=== PATIENT | male | born 1950 | race Caucasian/White ===

== ENCOUNTER 2017-10-28 10:34 | Observation (INO) ==
[2017-10-28] MEDS ORDERED: Chlorhexidine Gluconate 2% 1 Pack (2 Cloths) TOPICAL SCH (11:30)
[2017-10-28] MEDS ORDERED: Metoprolol Tartrate 25 MG Tablet PO SCH (11:30)
[2017-10-28] MEDS ORDERED: Neostigmine Inj 5 MG/5 ML Syringe IV.PUSH ONE (12:00)
[2017-10-28] MEDS ORDERED: Glycopyrrolate Inj 1 MG/5 ML Syringe IV.PUSH ONE (12:00)
[2017-10-28] MEDS ORDERED: Lidocaine PF 1% Inj 5 ML Syringe INFILTRATN ONE (12:00)
[2017-10-28] MEDS ORDERED: Phenylephrine/NS 1000 MCG/10ML Syringe IV.PUSH ONE (12:00)
[2017-10-28] MEDS ORDERED: Sodium Chlor 0.9% Inj 500 ML IV.SIG SCH (12:00)
[2017-10-28] MEDS ORDERED: Gelatin Size 100 Topical Foam ONE (16:14)
[2017-10-28] MEDS: Thrombin Topical Soln 5,000 UNIT Vial TOPICAL ONE (17:25)
[2017-10-28] MEDS: Lidocaine 1%/Epinephrine 1:100,000 Inj 30 ML Vial ONE (17:25)
[2017-10-28] MEDS ORDERED: fentaNYL Citrate Inj 100 MCG/2 ML Ampul ONE (19:41)
[2017-10-28] MEDS ORDERED: Bupivacaine Liposomal PF 1.3% Inj 20 ML Vial ONE (20:13)
[2017-10-28] MEDS ORDERED: ceFAZolin 2 GM Premix Inj 2 GM/50 ML PIGGYBACK IV.SIG ONE (20:45)
--- NOTE | 2017-10-28 21:11 | XR ---
EXAM DATE: 10/28/2017 8:57 PM EDT AGE/SEX: 67 years / Male INDICATIONS: Level location L5-S1Low back pain CLINICAL DATA: This is the patient's initial encounter. Patient reports that signs and symptoms have been present for 1 day and indicates a pain score of Nonresponsive. MEDICAL/SURGICAL HISTORY: Non-responsive. Non-responsive. COMPARISON: No prior exams available for comparison. FINDINGS: Single lateral image obtained in the operating room during a procedure demonstrates instruments overl carson the posterior elements and posterior disc space at L5-S1. CONCLUSION: Instruments overlie the posterior elements and posterior disc space at L5-S1. Electronically signed by: Scott Weaver MD 10/28/2017 9:09 PM EDT
[2017-10-28] MEDS ORDERED: Acetaminophen 325 MG Tablet PO PRN (21:44)
--- NOTE | 2017-10-28 22:04 | P.OP ---
Date of procedure: 10/31/17 Procedure: Left L5-S1 foraminotomy, lysis of adhesions Anesthesia: GETA Surgeon: Bronson Ortiz MD Parent Partner: Robert Knox Estimated blood loss (mL): 100 Operation and Findings: Findings: Extensive adhesions of the L5 nerve root at the left L5-S1 extraforaminal location. Procedure in detail: The patient was brought in the operating room general endotracheal anesthesia induced without difficulty. Lines were established per anesthesia LIMA hose and sequential compression devices were placed Freeman catheter placed Patient placed in prone position on the [facility] table was side bolsters and all extremities appropriately padded. The lumbar region was prepped and draped in sterile fashion Appropriate timeout procedure performed with all personnel present and in agreement The incision was made approximately 5 cm lateral to the midline at the left L5- S1 level and carried sharply down to the fascia which was incised with the Metzenbaum scissors. The normal intramuscular plane was dissected down to the left L5-S1 facet. The Lugo elevator was used for elevation of the muscle and fascia away from the left L5 transverse process and sacral ala. The deep self-retaining retractor was placed. The L5-S1 level was verified with intraoperative C-arm imaging. The microscope was moved into place and used for the remainder of the procedure except for the closure. The intertransverse process ligament was opened with a thin ligament dissector and the 15 blade knife. The adipose tissue and ligamentous structures overlying the left L5-S1 foramen and exiting L5 nerve root were dissected with the microdissectors and microscissors. The inferior aspect of the superior left S1 facet was removed with the Kerrison rongeurs to perform a wide foraminotomy. Kambins triangle was entered and the left L5-S1 annulus exposed. The exiting left L5 nerve root was then delineated and there was noted to be extensive scar tissue and adhesion between the exiting nerve root and the annulus as well as the surrounding ligamentous and vascular structures. Extensive dissection with the microdissectors was required to free up the left L5 nerve root. Once free, it was gently retracted revealing the underlying annulus at the L5- S1 extraforaminal location. There was some bulging of the annulus but no definite annular tear or focal disc herniation. The nerve root appeared somewhat edematous. Due to the lack of definite focal disc herniation, a discectomy was not performed. It was felt that the patient likely had chronic radiculitis related to adhesions along the left L5 extraforaminal nerve root, possibly a remote petechial disc herniation. The region was well irrigated with antibiotic irrigation Bleeding was carefully controlled with the bipolar forceps Exparel was injected into the musculature along the exposure operative site. The closure was performed with 0 Vicryl for the deep and superficial fascia, 3- 0 Vicryl subcutaneous closure and 4-0 Vicryl running subcuticular closure A dressing of sterile benzoin Steri-Strips and Primapore was placed The patient was taken to recovery room in stable condition All counts were correct in the case No specimen was sent to pathology
[2017-10-28] MEDS ORDERED: *morphine SULFATE 4 MG/ML PERIprocedure ONLY ONE (22:58)
[2017-10-29] MEDS: Lidocaine 1%/Epinephrine 1:100,000 Inj 30 ML Vial ONE (01:05)
[2017-10-29] MEDS: Thrombin Topical Soln 5,000 UNIT Vial TOPICAL ONE (01:05)
[2017-10-29] MEDS ORDERED: Senna/Docusate Sodium 8.6/50 MG Tablet PO SCH (09:00)
--- NOTE | 2017-10-29 15:49 | P.PNNS ---
Subjective Interval history: 10/28: The patient presented to [facility] to have a left L5-S1 foraminotomy with lysis of adhesions. Post-operatively he was admitted to a regular med/surg floor. 10/29: This afternoon the patient is up and leaning on the counter in the room. He has the walker in front of him. He says he is doing good. He does have some mild pain to the surgical incision but denies any other back pain. He denies any pain, numbness or tingling to the lower extremities. He has no chest pain, palpitations, irregular heartbeat, shortness of breath, nausea or vomiting. He states he has had a bowel movement and is voiding without difficulty although it does burn secondary to the catheter. He does say he has numbness to the second and third right hand digits since the IV catheter was placed and that it is painful there. He has no sensorimotor deficits upon evaluation. Physical Therapy evaluated the patient and felt that he was able to be discharged home using a front wheeled walker and that no further therapy was needed at home. <Blake Guthrie E - Last Filed: 10/29/17 15:55> Physical Exam Vital signs: Vital Signs 10/28/17 21:25 10/28/17 21:29 10/28/17 21:45 Temperature 98.4 F Pulse Rate 79 79 69 Respiratory Rate 18 18 18 Blood Pressure 143/66 H 138/64 144/65 H Pulse Oximetry 98 94 L 94 L 10/28/17 22:00 10/28/17 22:15 10/28/17 22:30 Temperature Pulse Rate 69 71 69 Respiratory Rate 18 18 18 Blood Pressure 128/60 133/61 150/67 H Pulse Oximetry 95 95 93 L 10/28/17 22:45 10/28/17 23:00 10/28/17 23:30 Temperature Pulse Rate 68 69 69 Respiratory Rate 19 Blood Pressure 148/75 H 156/70 H 154/78 H Pulse Oximetry 95 95 94 L 10/29/17 00:00 10/29/17 02:00 10/29/17 04:00 Temperature 98.0 F 98 F Pulse Rate 68 56 L Respiratory Rate 18 18 Blood Pressure 123/60 122/55 L Pulse Oximetry 95 95 97 10/29/17 08:00 10/29/17 12:00 Temperature 98.3 F 97.6 F Pulse Rate 62 55 L Respiratory Rate 18 18 Blood Pressure 150/74 H 136/65 Pulse Oximetry 96 97 Intake & Output 10/28/17 10/29/17 10/29/17 18:59 06:59 18:59 Intake Total 6000 / 6000 1050 / 1050 Output Total 1225 / 1225 Balance 4775 / 4775 1050 / 1050 Weight 153.9 kg 158.8 kg Intake: IV 1050 / 1050 NS + KCl 20 mEq Inj 1,000 ML @ 1000 / 1000 100 mls/hr IV.CONT .Q10H TOBY Rx #:[id number] Anesthesia Amount 6000 / 6000 Output: Estimated Blood Loss 200 / 200 Urine Amount (Catheter) 1025 / 1025 Indwelling Urethral Catheter 1025 / 1025 Other: # Voids 2 Weight On Admission 153.9 kg Narrative: GENERAL: Leaning on the counter in the room w/the walker in front of him. Affect normal. Readily interacts. No apparent distress. HEENT: Normocephalic, atraumatic. RESPIRATORY: CTAB w/o W/R/R, equal excursion, nonlaboured, on RA. CARDIOVASCULAR: S1S2 w/RRR w/o M/G/R. GASTROINTESTINAL: Rotund, soft, nontender, bowel sounds not appreciated. MUSCULOSKELETAL: DUMONT spontaneously & purposefully w/o difficulty. Lumbar spine NTTP, minimally tender at incision which is well-approximated w/steri-strips w/ dried drainage under them. The dressing is rolled up and above the incision. NEUROLOGICAL: AAOx3. Speech clear & appropriate. Follows simple commands w/o difficulty. Sensation is intact to light touch to the lower extremities. Motor strength is normal to all major flexion & extension muscle groups of the lower extremities. - Urinary Catheter Management Indwelling Urethral Catheter Cath placed during this visit: yes, but has since been removed by the nurse Reason for continuing: Decision to DC catheter Insertion date: 10/28/17 Insertion time: 16:30 Removal date: 10/29/17 Removal time: 05:48 <Blake Guthrie - Last Filed: 10/29/17 15:55> - Urinary Catheter Management Indwelling Urethral Catheter Cath placed during this visit: no <Bronson Ortiz - Last Filed: 10/31/17 19:39> Assessment and Plan - Plan Impression: Postoperative Diagnosis: (1) Lumbar radiculopathy, chronic (2) Radiculitis Patient is doing well post-operatively. He has no radicular symptoms. There are no sensorimotor deficits noted to the lower extremities. Past 24 hrs: Afebrile. Physical Therapy recommends home w/front wheeled walker, no further therapy needed at home. POD #1 () s/p: Left L5-S1 foraminotomy, lysis of adhesions Plan: Dressing surgical wound. Will discharge patient home. <Blake Guthrie - Last Filed: 10/29/17 15:55> - Attending Attestation The exam, history, and the medical decision-making described in the above note were completed with the assistance of the mid-level provider. I reviewed and agree with the findings presented. I attest that I had a [id number] encounter with the patient on the same day, and personally performed and documented my assessment and findings in the medical record. <Bronson Ortiz - Last Filed: 10/31/17 19:39>
--- NOTE | 2017-10-29 16:25 | P.DS ---
<Blake Guthrie E - Last Filed: 10/29/17 16:29> Date of admission: 10/29/17 00:25 Primary care physician: Trevor Paiz MD Attending physician on discharge: Bronson Ortiz Anticipated date of discharge: 10/29/17 Brief History from admission: 10/28: The patient presented to [facility] to have a left L5-S1 foraminotomy with lysis of adhesions. Post-operatively he was admitted to a regular med/surg floor. 10/29: This afternoon the patient is up and leaning on the counter in the room. He has the walker in front of him. He says he is doing good. He does have some mild pain to the surgical incision but denies any other back pain. He denies any pain, numbness or tingling to the lower extremities. He has no chest pain, palpitations, irregular heartbeat, shortness of breath, nausea or vomiting. He states he has had a bowel movement and is voiding without difficulty although it does burn secondary to the catheter. He does say he has numbness to the second and third right hand digits since the IV catheter was placed and that it is painful there. He has no sensorimotor deficits upon evaluation. Physical Therapy evaluated the patient and felt that he was able to be discharged home using a front wheeled walker and that no further therapy was needed at home. Therefore he was discharged home that afternoon. DS: Diagnosis - Discharge Diagnosis (1) Lumbar radiculopathy, chronic Status: Acute (2) Radiculitis Status: Acute DS: Summary Hospital Course: 10/28: The patient presented to [facility] to have a left L5-S1 foraminotomy with lysis of adhesions. Post-operatively he was admitted to a regular med/surg floor. 10/29: This afternoon the patient is up and leaning on the counter in the room. He has the walker in front of him. He says he is doing good. He does have some mild pain to the surgical incision but denies any other back pain. He denies any pain, numbness or tingling to the lower extremities. He has no chest pain, palpitations, irregular heartbeat, shortness of breath, nausea or vomiting. He states he has had a bowel movement and is voiding without difficulty although it does burn secondary to the catheter. He does say he has numbness to the second and third right hand digits since the IV catheter was placed and that it is painful there. He has no sensorimotor deficits upon evaluation. Physical Therapy evaluated the patient and felt that he was able to be discharged home using a front wheeled walker and that no further therapy was needed at home. Therefore he was discharged home that afternoon. - Time Spent with Patient Total time spent providing and/or coordinating discharge services: Exam Vital signs: Vital Signs 10/28/17 21:25 10/28/17 21:29 10/28/17 21:45 Temperature 98.4 F Pulse Rate 79 79 69 Respiratory Rate 18 18 18 Blood Pressure 143/66 H 138/64 144/65 H Pulse Oximetry 98 94 L 94 L 10/28/17 22:00 10/28/17 22:15 10/28/17 22:30 Temperature Pulse Rate 69 71 69 Respiratory Rate 18 18 18 Blood Pressure 128/60 133/61 150/67 H Pulse Oximetry 95 95 93 L 10/28/17 22:45 10/28/17 23:00 10/28/17 23:30 Temperature Pulse Rate 68 69 69 Respiratory Rate 19 Blood Pressure 148/75 H 156/70 H 154/78 H Pulse Oximetry 95 95 94 L 10/29/17 00:00 10/29/17 02:00 10/29/17 04:00 Temperature 98.0 F 98 F Pulse Rate 68 56 L Respiratory Rate 18 18 Blood Pressure 123/60 122/55 L Pulse Oximetry 95 95 97 10/29/17 08:00 10/29/17 12:00 Temperature 98.3 F 97.6 F Pulse Rate 62 55 L Respiratory Rate 18 18 Blood Pressure 150/74 H 136/65 Pulse Oximetry 96 97 Intake & Output 10/28/17 10/29/17 10/29/17 18:59 06:59 18:59 Intake Total 6000 / 6000 1050 / 1050 Output Total 1225 / 1225 Balance 4775 / 4775 1050 / 1050 Weight 153.9 kg 158.8 kg Intake: IV 1050 / 1050 NS + KCl 20 mEq Inj 1,000 ML @ 1000 / 1000 100 mls/hr IV.CONT .Q10H TOBY Rx #:[id number] Anesthesia Amount 6000 / 6000 Output: Estimated Blood Loss 200 / 200 Urine Amount (Catheter) 1025 / 1025 Indwelling Urethral Catheter 1025 / 1025 Other: # Voids 2 Weight On Admission 153.9 kg Results Procedures completed during hospitalization: 10/28/17: Left L5-S1 foraminotomy, lysis of adhesions - Impressions ITS Impressions Lumbar Spine X-Ray 10/28/17 00:00 CONCLUSION: Instruments overlie the posterior elements and posterior disc space at L5-S1. <Bronson Ortiz - Last Filed: 10/31/17 19:39> Date of admission: 10/29/17 00:25 Primary care physician: Trevor Paiz MD DS: Summary - Time Spent with Patient Total time spent providing and/or coordinating discharge services: Results - Impressions ITS Impressions Lumbar Spine X-Ray 10/28/17 00:00 CONCLUSION: Instruments overlie the posterior elements and posterior disc space at L5-S1. Discharge Plan - Discharge Order Discharge Orders: Discharge Order (Routine); Ordered 10/29/17 Ordered By: Blake Guthrie - Discharge Details Anticipated Discharge Date: 10/29/17 - Physicians Team Primary Care Provider: Trevor Paiz Attending Provider: Bronson Ortiz - Rxs /Orders / Referrals /Forms Prescriptions: Continue amlodipine 5 mg Tablet 5 mg PO DAILY furosemide 80 mg Tablet 80 mg PO DAILY ipratropium-albuterol 20-100 mcg/actuation Mist 1 puff INHALATION Q6H PRN (Reason: Shortness Of Breath) oxycodone-acetaminophen 10-325 mg Tablet 1 tab PO Q6H PRN (Reason: Pain) potassium chloride 10 mEq Tablet Extended Release 10 meq PO DAILY valsartan 160 mg Tablet 160 mg PO BID Ambulatory Orders / Order Sets / DME: Walker With Front Wheels (1 each) (Routine) Location: Determined by Patient Ordered By: Blake Guthrie Referrals: Trevor Paiz MD [Primary Care Provider] - See Instructions Bronson Ortiz MD [NEUROSURGERY] - See Instructions - Discharge Instructions Additional Instructions: Avoid any excessive twisting, reaching, bending, lifting or other strenuous activity. Keep the dressing on for 7 days. It may be removed on Wednesday. After removing the dressing covering the surgical incision, leave the steri- strips on and let them fall off on their own. You may leave the incision open to air then. You may shower after the surgical incision has healed completely, usually 10 to 12 days. When showering, let the water run over the incision, gently wash, rinse and pat dry. Avoid any medication that contains aspirin or NSAIDs (for example: ibuprofen, naproxysn, Aleve, Motrin, etc.) for the next 3 months. If you take a baby aspirin (81 mg) tablet daily you may start it in 5 days, Wednesday. Call the office to at [phone] to schedule a follow up appointment in 10 days for a wound check.
== END 2017-10-29 17:17 | disposition home or self-care (01) ==
LOC: N05 10:34 → HSDC 10:34
PROVIDERS: ADMIT Neurological Surgery; ATTEND Neurological Surgery